=== PATIENT | female | born 1980 | race Caucasian/White ===

== ENCOUNTER → 2019-08-23 | Outpatient (CLI) | payer BC | LOC: MC.RAD 14:45 | DX: Z12.31 Encounter for screening mammogram for malignant neoplasm of breast (principal); Z98.84 Bariatric surgery status ==

== ENCOUNTER → 2019-08-24 | Outpatient (CLI) | payer BC | LOC: MC.RAD 14:10 | DX: N63.41 Unspecified lump in right breast, subareolar (principal); N60.01 Solitary cyst of right breast | CPT/HCPCS: G0279 ==

== ENCOUNTER → 2020-12-20 | Outpatient (CLI) | payer BC | LOC: MC.RAD 11:30 | DX: Z12.31 Encounter for screening mammogram for malignant neoplasm of breast (principal); N63.10 Unspecified lump in the right breast, unspecified quadrant; N63.20 Unspecified lump in the left breast, unspecified quadrant ==

== ENCOUNTER → 2020-12-24 | Outpatient (CLI) | payer BC | LOC: MC.RAD 11:09 | DX: N60.01 Solitary cyst of right breast (principal) ==

== ENCOUNTER 2021-09-06 11:10 | Day surgery (SDC) | payer BC ==
[~2021-09-06] VITALS: Ht 165.1 cm; Wt 72.4 kg
[2021-09-06 12:42] VITALS: BP 114/75; PULSE 64; TEMP 98
[2021-09-06] MEDS ORDERED: CARAFATE 1GM1 G PO (12:58)
[2021-09-06] MEDS ORDERED: PRIL40 PO (12:59)
[2021-09-06 14:00] VITALS: BP 104/72; PULSE 67
--- NOTE | 2021-09-06 14:00 | NUR ---
Patient returns to [facility] [address] per cart and transfers to recliner. Awake and alert. Temp 98.0 and room air sats 100%. IV fluids infusing. Eating muffin and drinking Sprite. Spouse in room.
[2021-09-06 14:15] VITALS: BP 95/79; PULSE 61
--- NOTE | 2021-09-06 14:15 | NUR ---
Tolerated muffin and Sprite. Denies difficulty swallowing.
[2021-09-06 14:30] VITALS: BP 104/71; PULSE 65
--- NOTE | 2021-09-06 14:30 | NUR ---
Tolerated muffin and Sprite. Dr. Mckeon talked with the patient and all questions answered. IV discontinued and site is free of redness.
--- NOTE | 2021-09-06 14:36 | NUR ---
Dismissal instructions given and signed.
--- NOTE | 2021-09-06 14:39 | NUR ---
Dismissed to home driven by spouse and taken to the front door per wheelchair and assisted into vehicle.
== END 2021-09-06 14:39 | disposition home or self-care (01) ==
LOC: SDCO 11:10
DX: K21.9 Gastro-esophageal reflux disease without esophagitis (principal); K29.30 Chronic superficial gastritis without bleeding; K44.9 Diaphragmatic hernia without obstruction or gangrene; K74.60 Unspecified cirrhosis of liver; F17.210 Nicotine dependence, cigarettes, uncomplicated; Z90.710 Acquired absence of both cervix and uterus; Z90.49 Acquired absence of other specified parts of digestive tract; Z79.899 Other long term (current) drug therapy
CPT/HCPCS: J2704; J7030

== ENCOUNTER → 2021-09-20 | Outpatient (CLI) | payer BC ==
[~2021-09-20] MED LIST: CARAFATE 1GM1 G PO; PRIL40 PO
== END ==
LOC: MC.RAD 13:36
DX: N60.11 Diffuse cystic mastopathy of right breast (principal)